=== PATIENT | female | born 1950 | race Caucasian/White ===

== ENCOUNTER → 2016-10-01 | Outpatient (CLI) | payer OTHER ==
--- NOTE | 2016-10-02 15:29 | PCVCIMAG ---
APPROVED REPORT Exam: Nuclear Stress Test Indication: Chest Pain Patient Location: Out-Patient Stress Nurse: Melody Buckner RN, Daisy Smith RN [place] Tech:Cody Adamson NMTCB Ht: 5 ft 3 in Wt: 143 lbs BSA: 1.68 m2 HR: 87 bpm BP: 132/69 mmHg BMI: 25.3 Rhythm: SR Medical History Medical History: Age, Hyperlipidemia, HTN, DM Non Insulin, Former Smoker, Medications: Amlodipine, ASA, Atrovastatin, Allergies: Levemir, PCN Pretest Chest Pain Characteristics: No chest pain Exercise History: Physically active NM EXAM: Myocardial Perfusion REST/STRESS Imaging Protocol: Rest Tc-99m/Stress Tc-99m 1 day Resting Data Rest SPECT myocardial perfusion imaging was performed in supine position 45 minutes following the intravenous injection of 11 mCi of Tc-99m Sestamibi. Time of rest injection: 0800 Date: 10/01/2016 Exercise Stress At peak stress, the patient was injected intravenously with 31.9mCi of Tc-99m Sestamibi. Time of stress injection: 944 Date: 10/01/2016 The images were gated to evaluate regional wall motion and calculate left ventricular ejection fraction. Study Data Post stress, the left ventricular ejection was 76%.. SSS: 0 SRS: 0 SDS: 0 TID = 1.07. Perfusion There is a small area of moderately reduced uptake in the apical segment of the anterior wall which is seen on the stress images and improves on the resting images. This area thickens and moves normally and is most consistent with ischemia. Nuclear Conclusion 1. INTERMEDIATE RISK STUDY Interpreted by: Nai Burks MD Electronically Approved: 10/02/2016 15:27:32 Stress Test Details Stress Test: Exercise stress testing was performed using a Sudhir protocol. HR Resting HR: 87 bpmMax Heart Rate (APMHR): 152 bpm Max HR Achieved: 144 bpmTarget HR (85% APMHR): 129 bpm % of APMHR: 94 Recovery HR: 89 bpm BP Resting BP: 132/69 mmHg Max BP: 170/80 mmHg ECG Resting ECG: Sinus Rhythm Stress ECG: Sinus Tachycardia Recovery ECG: Sinus Rhythm Clinical Reason for Termination: Fatigue, Dyspnea Stress Symptoms: None Exercise duration: 6.0 min sec Exercise capacity: 7.0 METs Symptoms resolved during recovery. Stress ECG Conclusion 1. SUBJECTIVELY NEGATIVE FOR ISCHEMIA 2. ELECTROCARDIOGRAPHICALLY NEGATIVE FOR ISCHEMIA 3. AVERAGE FUNCTIONAL CAPACITY <Conclusion> 1. SUBJECTIVELY NEGATIVE FOR ISCHEMIA 2. ELECTROCARDIOGRAPHICALLY NEGATIVE FOR ISCHEMIA 3. AVERAGE FUNCTIONAL CAPACITY
== END | disposition home or self-care (01) ==
LOC: PCVCIMAG 07:42
PROVIDERS: ATTEND Internal Medicine
DX: I10 Essential (primary) hypertension (principal); R00.0 Tachycardia, unspecified; E11.9 Type 2 diabetes mellitus without complications; E78.5 Hyperlipidemia, unspecified; Z87.891 Personal history of nicotine dependence
CPT/HCPCS: 78452; 93017; A9500

== ENCOUNTER → 2017-02-16 | Outpatient (CLI) | payer OTHER | END | disposition home or self-care (01) | LOC: PCVCCLINIC 11:24 | DX: I10 Essential (primary) hypertension (principal); E78.5 Hyperlipidemia, unspecified; E11.9 Type 2 diabetes mellitus without complications | CPT/HCPCS: 36415; 80061 ==